=== PATIENT | female | born 1965 | race Caucasian/White ===

== ENCOUNTER 2019-06-26 17:35 | Emergency (ER) | payer SELFPAY ==
[~2019-06-26] VITALS: Ht 167.6 cm; Wt 77.4 kg
--- NOTE | 2019-06-26 17:59 | NUR ---
BIB [facility] FROM ALF FOR "FLU LIKE SYMPTOMS." PT STATES NAUSEA/VOMITTING/DIARRHEA/COUGH/WEAKNESS X 3 DAYS. PT AAO X 4, NAD, ROOM AIR. CALL LIGHT WITHIN REACH. PT IN GOWN AND ON FULL MONITOR. PT STATES RECENT DISCHARGE FROM HOSPITAL FOR COPD EXACERBATION. CALL LIGHT WITHIN REACH, SIDERAIL X [address]
[2019-06-26] MEDS ORDERED: ONDANSETRON ODT 4 MG ONE (18:21)
[2019-06-26 18:23] LABS: BASOPHILS # (AUTO) 0.04 x10^3/uL (0-0.1); BASOPHILS % (AUTO) 1 % (0-1); EOSINOPHILS # (AUTO) 0.02 x10^3/uL (0-0.4); EOSINOPHILS % (AUTO) 0 % (1-7); LYMPHOCYTES # (AUTO) 2.78 x10^3/uL (1-3.4); LYMPHOCYTES % (AUTO) 46 % (22-44); MD NO; MEAN CORPUSCULAR HEMOGLOBIN 34.1 pg (27.0-34.8); MEAN CORPUSCULAR HGB CONC 33.5 g/dL (32.4-35.8); MEAN CORPUSCULAR VOLUME 101.8 fL (80-100); MEAN PLATELET VOLUME 7.8 fL (7.4-10.4); MONOCYTES # (AUTO) 0.83 x10^3/uL (0.2-0.8); MONOCYTES % (AUTO) 14 % (2-9); NEUTROPHILS # (AUTO) 2.44 x10^3/uL (1.8-6.8); NEUTROPHILS % (AUTO) 40 % (42-75); PLATELET COUNT 383 x10^3/uL (130-400); RED CELL DISTRIBUTION WIDTH 13.5 % (9.6-15.2)
--- NOTE | 2019-06-26 18:27 | NUR ---
PT MEDICATED PER ORDERS.
[2019-06-26] MEDS ORDERED: ONDANSETRON ODT 8 MG PO ONE (18:30)
[2019-06-26 18:32] LABS: ALANINE AMINOTRANSFERASE 61 U/L (12-78); ALBUMIN 3.9 g/dL (3.4-5.0); ANION GAP 11 mmol/L (5-15); CALCIUM 9.1 mg/dL (8.5-10.1); CHLORIDE 102 mmol/L (98-107); CREATININE 0.91 mg/dL (0.55-1.02)
[2019-06-26 18:34] LABS: ALKALINE PHOSPHATASE 52 U/L (45-117); BILIRUBIN,TOTAL 0.4 mg/dL (0.2-1.0); TOTAL PROTEIN 7.4 g/dL (6.4-8.2)
--- NOTE | 2019-06-26 19:06 | NUR ---
THIS RN CALLED TO ROOM, PT VOMITTED. THIS RN TO UPDATE MD.
[2019-06-26] MEDS ORDERED: PROMETHAZINE 25 MG/ML, 1ML ONE (19:19)
--- NOTE | 2019-06-26 19:23 | NUR ---
UPDATED ON PT'S VOMITTING, NEW ORDER RECIEVED AND IMPLEMENTED.
[2019-06-26] MEDS ORDERED: PROMETHAZINE 25 MG/ML, 1ML IM ONE (19:30)
--- NOTE | 2019-06-26 20:57 | NUR ---
PT EDUCATED ON NEED FOR UA, PT AWARE.
--- NOTE | 2019-06-26 21:10 | NUR ---
REPORT GIVEN TO ALFREDO FLEMING. CARE TRANSFERRED.
--- NOTE | 2019-06-26 21:11 | NUR ---
RECEIVED BEDSIDE REPORT AND CARE FROM ISH FUENTES. PT RESTING IN POSITION OF COMFORT. WATCHING TV. REPORTS NAUSEA IMPROVED. PT PROVIDED WATER AND SPRITE PER MD FOR PO CHALLENGE, PT TAKING SMALL SIPS AND TOLERATING WITHOUT EMESIS AT THIS TIME. DENIES URGE TO URINATE, AWARE UA SAMPLE IS NEEDED. VSS. CALL LIGHT IN REACH. FALL PRECAUTIONS IN PLACE.
--- NOTE | 2019-06-26 22:05 | NUR ---
PT CONTINUES TO DENY URGE TO URINATE, DISCUSSED WITH DR. IGNACIO, PER MD TO STRAIGHT CATH PT FOR UA SAMPLE IF PT WILL AGREE. PT REFUSED STRAIGHT CATH, DR. IGNACIO AWARE. PT REQUESTS THIS RN TO RETURN IN 15-20 MIN TO ATTEMPT CLEAN CATCH UA. VSS. CALL LIGHT IN REACH. FALL PRECUATIONS IN PLACE
--- NOTE | 2019-06-26 23:00 | NUR ---
PT AMBULATORY TO RESTROOM WITH STEADY GAIT WITH SORAYA FUENTES FOR UA SAMPLE
--- NOTE | 2019-06-26 23:30 | NUR ---
DR. IGNACIO AT BEDSIDE FOR RECHECK, DISCUSSING DISCHARGE POC. NO UA OR STOOL SAMPLES TO BE COLLECTED PER MD AT THIS TIME. PT CLEARED FOR DISCHARGE
--- NOTE | 2019-06-26 23:59 | NUR ---
Patient/Caregiver given discharge instructions and they have confirmed that they understand the instructions. Patient ambulatory with steady gait.
[2019-06-27] VITALS: BP 136/78
--- NOTE | 2019-06-27 | NUR ---
[employer] V[employer]ER PROVIDED TO PT
== END 2019-06-27 00:06 ==
LOC: ED 06-27 00:01
DX: R11.2 Nausea with vomiting, unspecified (principal); R10.84 Generalized abdominal pain; I10 Essential (primary) hypertension; E11.9 Type 2 diabetes mellitus without complications; J44.9 Chronic obstructive pulmonary disease, unspecified; E78.00 Pure hypercholesterolemia, unspecified
CPT/HCPCS: 36415; 80053; 83690; 85025; 93005; 96372; 99285; J2550; Q0162

== ENCOUNTER 2020-04-16 11:32 | Emergency (ER) | payer MEDICAID ==
[~2020-04-16] VITALS: Ht 160 cm; Wt 80.0 kg
--- NOTE | 2020-04-16 11:37 | NUR ---
[facility] COMPLA[facility] OF FEELING SICK FOR ONE MONTH, PT REPORTS FEVER, COUGH, ABD PAIN AND FATIGUE.
[2020-04-16] MEDS ORDERED: ACETAMINOPHEN 325 MG TABLET ONE (12:06)
--- NOTE | 2020-04-16 12:14 | NUR ---
MEDICATED PER ORDERS, XR COMPLETE.
[2020-04-16] MEDS ORDERED: ACETAMINOPHEN 325 MG TABLET PO ONE (12:30)
[2020-04-16 13:18] LABS: BASOPHILS % (AUTO) 0 % (0-1); EOSINOPHILS % (AUTO) 0 % (1-7); LYMPHOCYTES % (AUTO) 15 % (22-44); MEAN PLATELET VOLUME 7.3 fL (7.4-10.4); MONOCYTES % (AUTO) 12 % (2-9); NEUTROPHILS % (AUTO) 73 % (42-75); PLATELET COUNT 323 x10^3/uL (130-400); RED CELL DISTRIBUTION WIDTH 14.9 % (9.6-15.2)
[2020-04-16 13:21] LABS: INTERNATIONAL NORMALIZED RATIO 1.04 (0.93-1.1)
--- NOTE | 2020-04-16 13:22 | NUR ---
Patient/Caregiver given discharge instructions and they have confirmed that they understand the instructions. Patient ambulatory with steady gait.
[2020-04-16 13:23] VITALS: BP 134/86
[2020-04-16 13:52] LABS: MD SCAN
== END 2020-04-16 13:24 ==
LOC: ED 11:55
DX: U07.1 COVID-19 (principal); B34.9 Viral infection, unspecified; I10 Essential (primary) hypertension; J44.9 Chronic obstructive pulmonary disease, unspecified
CPT/HCPCS: 71045; 80047; 85025; 85610; 85730; 87635; 99284

== ENCOUNTER 2020-12-28 20:44 | Emergency (ER) | payer MEDICAID ==
[~2020-12-28] VITALS: Ht 160 cm; Wt 97.0 kg
[2020-12-28] MEDS ORDERED: DICYCLOMINE 10 MG/ML, 2ML ONE (20:55)
[2020-12-28] MEDS ORDERED: KETOROLAC 30 MG/1 ML ONE (21:06)
--- NOTE | 2020-12-28 21:36 | NUR ---
PT to room from [facility] at this time.
[2020-12-28] MEDS ORDERED: OMEP-419 PO (21:53)
[2020-12-28] MEDS ORDERED: VORT20TA PO (21:53)
[2020-12-28] MEDS ORDERED: LISD20CA4 PO (21:53)
[2020-12-29 00:20] VITALS: BP 96/54
== END 2020-12-29 00:55 | disposition home or self-care (01) ==
LOC: ED 22:11
DX: F10.120 Alcohol abuse with intoxication, uncomplicated (principal); I10 Essential (primary) hypertension; J44.9 Chronic obstructive pulmonary disease, unspecified; E78.5 Hyperlipidemia, unspecified; E78.00 Pure hypercholesterolemia, unspecified; Y90.0 Blood alcohol level of less than 20 mg/100 ml
CPT/HCPCS: 99283